=== PATIENT | male | born 1955 | race African-American/Black ===

== ENCOUNTER 2016-06-13 07:40 | Outpatient (CLI) | payer MEDICAID, MEDICARE | END 2016-06-13 23:59 | DX: E11.51 Type 2 diabetes mellitus with diabetic peripheral angiopathy without gangrene (principal); E78.5 Hyperlipidemia, unspecified; E11.69 Type 2 diabetes mellitus with other specified complication; E11.59 Type 2 diabetes mellitus with other circulatory complications ==

== ENCOUNTER 2016-09-11 07:43 | Outpatient (CLI) | payer MEDICAID ==
[2016-09-12 10:41] LABS: BASOPHILS # (AUTO) 0.1 10^3/uL (0.0-0.1); BASOPHILS % (AUTO) 0.9 %; EOSINOPHILS # (AUTO) 0.4 10^3/uL (0.0-0.7); EOSINOPHILS % (AUTO) 4.5 %; HCT - HEMATOCRIT 37.3 % (42.0-52.0); HGB - HEMOGLOBIN 12.2 g/dL (14.0-18.0); LYMPHOCYTES # (AUTO) 2.8 10^3/uL (1.5-3.5); MEAN CORPUSCULAR HGB CONC 32.8 g/dL (32.0-36.0); MEAN CORPUSCULAR VOLUME 97.4 fL (80.0-94.0); MEAN PLATELET VOLUME 7.7 fL (7.4-11.4); MONOCYTES # (AUTO) 0.5 10^3/uL (0.0-1.0); MONOCYTES % (AUTO) 6.1 %; NEUTROPHILS # (AUTO) 4.2 10^3/uL (1.5-6.6); NEUTROPHILS % (AUTO) 53.5 %; RED BLOOD COUNT 3.83 10^6/uL (4.70-6.10); UNCORRECTED WHITE BLOOD COUNT 7.9 x10^3/uL; WHITE BLOOD COUNT 7.9 x10^3/uL (4.8-10.8)
[2016-09-12 11:01] LABS: BILIRUBIN,TOTAL 0.5 mg/dL (0.2-1.0); BUN - BLOOD UREA NITROGEN 7 mg/dL (6-20); CALCIUM 8.9 mg/dL (8.5-10.3); CARBON DIOXIDE - CO2 30 mmol/L (21-32); CHLORIDE 109 mmol/L (101-111); CHOL/HDL RATIO 2.4 (<5.0); CHOLESTEROL 170 mg/dL; CREATININE 1.1 mg/dL (0.6-1.2); GFR - MDRD 83 (>89); GLUCOSE 74 mg/dL (70-100); HDL CHOLESTEROL 70 mg/dL; LDL/HDL RATIO 1.3 (<3.6); POTASSIUM 4.1 mmol/L (3.5-5.0); SODIUM 143 mmol/L (135-145); TOTAL PROTEIN 6.9 g/dL (6.7-8.2); TRIGLYCERIDES 48 mg/dL; VLDL CHOLESTEROL 10 mg/dL
[2016-09-12 11:22] LABS: HEMOGLOBIN A1C 0.68 g/dL
== END 2016-09-11 07:44 | disposition home or self-care (01) ==
LOC: LAB.F 07:43
PROVIDERS: ATTEND Nurse Practitioner Family
DX: E11.40 Type 2 diabetes mellitus with diabetic neuropathy, unspecified (principal); G89.29 Other chronic pain; I25.10 Atherosclerotic heart disease of native coronary artery without angina pectoris; R25.1 Tremor, unspecified; E78.5 Hyperlipidemia, unspecified
CPT/HCPCS: 36415; 80053; 80061; 83036; 84443; 85025; 85651; 86430

== ENCOUNTER 2016-11-07 11:23 | Outpatient (CLI) | payer MEDICAID ==
[2016-11-07 18:38] LABS: HEMOGLOBIN A1C 0.81 g/dL
[2016-11-07 18:49] LABS: IRON 63 ug/dL (45-182); TOTAL IRON BINDING CAPACITY 311 ug/dL (250-450); TRANSFERRIN 222 mg/dL (180-329)
[2016-11-11 08:20] LABS: TEST RESULT REPORT
[2016-11-11 23:37] LABS: ALPHA 1 GLOBULIN 0.4 g/dL (0.2-0.3); ALPHA 2 GLOBULIN 0.9 g/dL (0.5-0.9); BETA 1 GLOBULIN 0.5 g/dL (0.4-0.6); BETA 2 GLOBULIN 0.4 g/dL (0.2-0.5)
== END 2016-11-07 11:24 | disposition home or self-care (01) ==
LOC: LAB.F 11:23
PROVIDERS: ATTEND Physician Assistant
DX: D64.9 Anemia, unspecified (principal); E11.40 Type 2 diabetes mellitus with diabetic neuropathy, unspecified; I25.10 Atherosclerotic heart disease of native coronary artery without angina pectoris; D50.9 Iron deficiency anemia, unspecified
CPT/HCPCS: 36415; 81599; 82728; 83021; 83036; 83540; 84155; 84165; 84466; 85014; 85018

== ENCOUNTER 2018-05-17 11:10 | Outpatient (CLI) | payer OTHER | END 2018-05-17 11:11 | disposition home or self-care (01) | LOC: SC 11:10 | PROVIDERS: ATTEND Internal Medicine Pulmonary Disease | DX: G47.33 Obstructive sleep apnea (adult) (pediatric) (principal) | CPT/HCPCS: 99203; 99212 ==

== ENCOUNTER 2018-10-21 19:54 | Emergency (ER) | payer OTHER ==
[2018-10-21 20:04] VITALS: BP 111/84
--- NOTE | 2018-10-21 20:46 | XRAY Report ---
Reason: Fell @ work, c/o pain Procedure Date: 10/21/2018 Accession Number: [id number] / [id number] Procedure: XR - Knee 3 View RT CPT Code: FULL RESULT: EXAM: RIGHT KNEE RADIOGRAPHY EXAM DATE: 10/21/2018 08:17 PM. CLINICAL HISTORY: Fall. COMPARISON: None. TECHNIQUE: 3 views. FINDINGS: Bones: Normal. No fractures or bone lesions. Joints: No evidence of dislocation. There is chondrocalcinosis. Soft Tissues: Normal. No soft tissue swelling. IMPRESSION: No evidence of fracture or dislocation. [facility]
--- NOTE | 2018-10-21 20:54 | ED Physician Documentation ---
PD HPI Fall - Stated complaint Stated Complaint: R KNEE/L FOOT/BACK/L ELBOW INJ - Chief complaint Chief Complaint: Trauma Ext - History obtained from History obtained from: Patient - History of Present Illness Mechanism of injury: Slipped (He states he was carrying some objects at work and tripped over something on the floor. He fell forward onto his knee and then onto his wrists. He complained of pain in his knee primarily. He states later on he developed some stiffness in the forearm and his low back. He is having limping on the right knee because of the discomfort.) Fall distance: Standing position Where injury occurred: Work Injury(ies) location: Back, Left Uppper Extremity (forearm), Right Lower Extremity (knee), Left Lower Extremity (foot) Quality of pain: Pain, Aching Associated symptoms: No: LOC, AMS, Dyspnea, Nausea / vomiting Symptoms improve with: Rest Worsens with: Movement Contributing factors: No: Anticoagulated Similar symptoms before: Has not had sx before Review of Systems Cardiac: denies: Chest pain / pressure GI: denies: Abdominal Pain Skin: denies: Abrasion (s), Laceration (s) Musculoskeletal: reports: Back pain (lumbar area muscles, increased with ROM.). denies: Neck pain Neurologic: denies: Focal weakness, Numbness, Altered mental status, Headache, Head injury PD PAST MEDICAL HISTORY - Past Medical History Cardiovascular: Hypertension, High cholesterol, Coronary artery disease Respiratory: Sleep apnea Endocrine/Autoimmune: Type 2 diabetes GI: GERD : Benign prostate hypertrophy Psych: Bipolar disorder Musculoskeletal: Fatigue, Chronic back pain - Past Surgical History Past Surgical History: Yes Ortho: Other Cardiovascular: Coronary stent - Present Medications Home Medications: Ambulatory Orders Medication Instructions Recorded Confirmed Duloxetine HCl [Cymbalta] 60 mg PO DAILY 08/23/13 11/23/13 Ezetimibe [Zetia] 10 mg PO QD 08/23/13 11/23/13 RX: Aspirin [Tia] 82 mg PO 0800 08/23/13 11/23/13 RX: Atorvastatin Calcium 80 mg PO DAILY 08/23/13 11/23/13 RX: Clopidogrel [Plavix] 75 mg PO DAILY 08/23/13 11/23/13 RX: Ergocalciferol [Vitamin D2] 50,000 units PO DAILY 08/23/13 11/23/13 RX: Metoprolol Tartrate 100 mg PO DAILY 08/23/13 11/23/13 RX: Tamsulosin [Flomax] 0.04 mg PO DAILY 08/23/13 11/23/13 RX: metFORMIN [Glucophage] 1,000 mg PO BID 08/23/13 11/23/13 RX: oxyCODONE [Roxicodone] 5 mg PO QID 08/23/13 11/23/13 Insulin Detemir [Levemir Flextouch] 30 unit SUBQ BID 10/21/18 10/21/18 Oxycodone HCl/Acetaminophen 1 each PO Q6H PRN #15 tablet 10/21/18 [Percocet 5-325 mg Tablet] RX: Tizanidine HCl 4 mg PO TID PRN #25 capsule 10/21/18 - Allergies Allergies/Adverse Reactions: Allergies Allergy/AdvReac Type Severity Reaction Status Date / Time lithium [[place]] AdvReac Intermediate Nausea Verified 10/21/18 20:52 - Social History Does the pt smoke?: No Smoking Status: Never smoker Does the pt have substance abuse?: No PD ED PE NORMAL - Vitals Vital signs reviewed: Yes - General General: Alert and oriented X 3, No acute distress, Well developed/nourished - HEENT HEENT: Atraumatic, Dentition benign - Neck Neck: Supple, no meningeal sign, No bony TTP, No adenopathy - Cardiac Cardiac: RRR, No murmur - Respiratory Respiratory: Clear bilaterally - Abdomen Abdomen: Soft, Non tender - Back Back: No CVA TTP, No spinal TTP (but some tender in lateral lumbar area muscles.) - Derm Derm: Normal color, Warm and dry - Extremities Extremities: Other (The left foot shows some tenderness along the dorsal lateral aspect of the proximal foot. There is no obvious deformity. There is normal pulses color and capillary refill at the tip toes. The left forearm shows some tenderness in the radial side mid forearm. There is no tenderness at the elbow joint itself. There is no effusion. He is able to extend out to fully straight and supinate and pronate without pain at the antecubital area. The right knee shows tenderness anteriorly with this mild effusion. There is no noted laxity with stress testing of the ligaments.) - Neuro Neuro: Alert and oriented X 3, No motor deficit, No sensory deficit, Normal speech Results - Vitals Vitals: Vital Signs - 24 hr 10/21/18 20:01 Temperature 36.7 C Heart Rate 111 H Respiratory 18 Rate Blood Pressure 111/84 H O2 Saturation 100 Oxygen O2 Source Room air - Rads (name of study) right knee Radiology: Prelim report reviewed, See rad report (no fractures) left foot Radiology: Prelim report reviewed, See rad report (No fractures) Departure - Departure Disposition: 01 Home, Self Care Clinical Impression: Accidental fall Qualifiers: Encounter type: initial encounter Qualified Code(s): W19.XXXA - Unspecified fall, initial encounter Knee contusion Qualifiers: Encounter type: initial encounter Laterality: right Qualified Code(s): S80.01XA - Contusion of right knee, initial encounter Foot sprain Qualifiers: Encounter type: initial encounter Laterality: left Qualified Code(s): S93.602A - Unspecified sprain of left foot, initial encounter Low back strain Qualifiers: Encounter type: initial encounter Qualified Code(s): S39.012A - Strain of muscle, fascia and tendon of lower back, initial encounter Condition: Stable Record reviewed to determine appropriate education?: Yes Instructions: ED Sprain Strain Lumbar, ED Contusion Lower Ext Follow-Up: Margarette Avendano PA [Primary Care Provider] - Prescriptions: Oxycodone HCl/Acetaminophen [Percocet 5-325 mg Tablet] 1 each PO Q6H PRN #15 tablet PRN Reason: pain RX: Tizanidine HCl 4 mg PO TID PRN #25 capsule PRN Reason: Spasms Comments: Oren wrap for the need to reduce swelling. Off work tomorrow and the next day to allow time for reduce swelling and healing. Then limited lifting bending and squatting for a few more days after that. Recheck if not improved over the 3 to 5 days. Use some Tylenol 4 times a day as needed. Oxycodone as needed for pain. You can use tizanidine muscle relaxant if needed. Forms: Activity restrictions Discharge Date/Time: 10/21/18 22:16
[2018-10-21] MEDS ORDERED: IBUPROFEN 600 MG TABLET PO STA (21:12)
[2018-10-21] MEDS ORDERED: ACETAMINOPHEN 325 MG TABLET PO STA (21:12)
--- NOTE | 2018-10-21 22:00 | XRAY Report ---
Reason: fall with foot pain Procedure Date: 10/21/2018 Accession Number: [id number] / [id number] Procedure: XR - Foot 3 View LT CPT Code: FULL RESULT: EXAM: LEFT FOOT RADIOGRAPHY EXAM DATE: 10/21/2018 09:35 PM. CLINICAL HISTORY: Fall with foot pain. COMPARISON: None. TECHNIQUE: 3 views. FINDINGS: Bones: Normal. No fractures or bone lesions. Joints: Normal. No subluxations. Soft Tissues: Normal. No soft tissue swelling. IMPRESSION: No acute displaced fracture or malalignment. Unremarkable soft tissues. [facility]
== END 2018-10-21 22:16 | disposition home or self-care (01) ==
LOC: ED 19:54
DX: S39.012A Strain of muscle, fascia and tendon of lower back, initial encounter (principal); S93.602A Unspecified sprain of left foot, initial encounter; S80.01XA Contusion of right knee, initial encounter; M79.632 Pain in left forearm; W01.0XXA Fall on same level from slipping, tripping and stumbling without subsequent striking against object, initial encounter; Y93.89 Activity, other specified; Y99.0 Civilian activity done for income or pay; I10 Essential (primary) hypertension; E11.9 Type 2 diabetes mellitus without complications; Z79.84 Long term (current) use of oral hypoglycemic drugs; Z79.02 Long term (current) use of antithrombotics/antiplatelets; Z79.82 Long term (current) use of aspirin
CPT/HCPCS: 1040M; 73562; 73630; 99284; A9270

== ENCOUNTER 2021-01-03 14:33 | Outpatient (CLI) | payer MEDICARE, MEDICAID ==
[2021-01-03 19:56] LABS: BASOPHILS % (AUTO) 0.5 %; EOSINOPHILS # (AUTO) 0.5 10^3/uL (0.0-0.7); EOSINOPHILS % (AUTO) 6.2 %; HCT - HEMATOCRIT 38.6 % (42.0-52.0); HGB - HEMOGLOBIN 12.5 g/dL (14.0-18.0); LYMPHOCYTES # (AUTO) 2.5 10^3/uL (1.5-3.5); LYMPHOCYTES % (AUTO) 31.4 %; MEAN CORPUSCULAR HGB CONC 32.4 g/dL (32.0-36.0); MEAN CORPUSCULAR VOLUME 98.7 fL (80.0-94.0); MONOCYTES # (AUTO) 0.6 10^3/uL (0.0-1.0); MONOCYTES % (AUTO) 7.8 %; NEUTROPHILS # (AUTO) 4.2 10^3/uL (1.5-6.6); NEUTROPHILS % (AUTO) 53.8 %; PLT - PLATELET COUNT 203 10^3/uL (130-450); RED BLOOD COUNT 3.91 10^6/uL (4.70-6.10); RED CELL DISTRIBUTION WIDTH 13.4 % (12.0-15.0); WHITE BLOOD COUNT 7.9 x10^3/uL (4.8-10.8)
[2021-01-03 20:15] LABS: INR 1.1 (0.8-1.2); PT - PROTHROMBIN TIME 12.3 secs (9.9-12.6)
[2021-01-03 20:24] LABS: CALCIUM 9.2 mg/dL (8.5-10.3); CREATININE 1.1 mg/dL (0.6-1.2); POTASSIUM 3.6 mmol/L (3.5-5.0)
[2021-01-03 20:31] LABS: PARTIAL THROMBOPLASTIN TIME 28.2 secs (24.9-33.3)
[2021-01-03 21:00] LABS: ESTIMATED AVERAGE GLUCOSE 151 mg/dL (70-100); HEMOGLOBIN A1c% 6.9 % (4.27-6.07)
== END 2021-01-03 14:34 | disposition home or self-care (01) ==
LOC: LAB.S 14:33
PROVIDERS: ATTEND Physician Assistant
DX: Z01.812 Encounter for preprocedural laboratory examination (principal); E11.9 Type 2 diabetes mellitus without complications
CPT/HCPCS: 36415; 80048; 83036; 83540; 84466; 85025; 85610; 85730